=== PATIENT | female | born 1955 | race African-American/Black ===

== ENCOUNTER 2022-03-22 23:46 | Inpatient (IN) | payer MEDICARE, OTHER ==
[~2022-03-22] VITALS: Ht 165.1 cm; Wt 72.6 kg
[2022-03-23] MEDS ORDERED: CLON0.1T PO (00:16)
[2022-03-23] MEDS ORDERED: PREG50CA PO (00:16)
[2022-03-23] MEDS ORDERED: ASPI81TA31 PO (00:16)
[2022-03-23] MEDS ORDERED: AMLO10TA59 PO (00:16)
[2022-03-23] MEDS ORDERED: HYDR-3972 PO (00:16)
[2022-03-23] MEDS ORDERED: HYDR-4075 PO (00:16)
[2022-03-23] MEDS ORDERED: MAGN400O6 PO (00:16)
[2022-03-23] MEDS ORDERED: BISA10SU61 RC (00:16)
[2022-03-23] MEDS ORDERED: NA P230E RC (00:16)
[2022-03-23] MEDS ORDERED: CYCL5TAB PO (00:16)
[2022-03-23] MEDS ORDERED: LOSA100T31 PO (00:16)
[2022-03-23] MEDS ORDERED: CARV12.5 PO (00:16)
[2022-03-23] MEDS ORDERED: INSU100V7 SQ (00:16)
[2022-03-23] MEDS ORDERED: ACET-2154 PO (00:16)
--- NOTE | 2022-03-23 00:36 | NUR ---
Patient placed in hallway due to no beds avaialble in the ER at this time.
[2022-03-23 02:29] LABS: CARBON DIOXIDE 27 mmol/L (21-32); CHLORIDE 101 mmol/L (98-107); CREATININE 1.8 mg/dL (0.6-1.3); GLUCOSE 222 mg/dL (74-106); POTASSIUM 4.2 mmol/L (3.5-5.1); UREA NITROGEN, BLOOD 29 mg/dL (7-18)
[2022-03-23 02:32] LABS: ETHANOL < 3 MG/DL (0-0)
[2022-03-23 02:37] LABS: ALANINE AMINOTRANSFERASE 18 U/L (14-59); ALKALINE PHOSPHATASE 154 U/L (50-136); ASPARTATE AMINOTRANSFERASE 12 U/L (15-37); BILIRUBIN,DIRECT 0.1 mg/dL (0.0-0.2); BILIRUBIN,TOTAL 0.3 mg/dL (0.2-1.0); MEAN CORPUSCULAR HEMOGLOBIN 28.1 uug (24.7-32.8); MEAN CORPUSCULAR VOLUME 82.9 fL (75.5-95.3); PLATELET COUNT (AUTO) 242 K/uL (179-408); TOTAL PROTEIN, SERUM 7.1 g/dL (6.4-8.2)
[2022-03-23] MEDS ORDERED: FUROSEMIDE 40 MG/4 ML VIAL IV ONE (04:00)
--- NOTE | 2022-03-23 05:35 | NUR ---
Called [facility] for panel call.
[2022-03-23] MEDS ORDERED: REMEDY ESSENTIAL ZINC PASTE 113 GM TP PRN (06:00)
[2022-03-23] MEDS ORDERED: Medication Not On Formulary EA (Cyclobenzaprine Hcl 10 MG) PO PRN (06:00)
[2022-03-23] MEDS ORDERED: BISACODYL 10 MG SUPP.RECT RC PRN (06:00)
[2022-03-23] MEDS ORDERED: ONDANSETRON 4 MG/2 ML VIAL IV PRN (06:00)
[2022-03-23] MEDS ORDERED: MAGNESIUM HYDROXIDE 30 ML LIQUID UDC PO PRN ×2 (06:00)
[2022-03-23] MEDS ORDERED: DEXTROSE 50% 50 ML DISP.SYRIN IV PRN (06:00)
[2022-03-23] MEDS ORDERED: ACETAMINOPHEN 325 MG TABLET-SA PATIENTS-PAIN ONLY PO PRN (06:00)
[2022-03-23] MEDS ORDERED: CLONIDINE HCL 0.1 MG TABLET ONE (06:43)
[2022-03-23] MEDS: CLONIDINE HCL 0.1 MG TABLET PO PRN ×2 (06:45→23:55)
[2022-03-23] MEDS ORDERED: HYDROCODONE/APAP 5-325MG TABLET ONE (06:46)
[2022-03-23] MEDS: HYDROCODONE/APAP 5-325MG TABLET PO PRN ×2 (06:49→15:29)
--- NOTE | 2022-03-23 07:15 | NUR ---
Received pt in bed, alert and orientedx4 on 2 lpm via nasal cannula. Pt not in any form of distress.
[2022-03-23 07:26] LABS: *BILIRUBIN,URIN NEGATIVE (NEGATIVE); *BLOOD, URINE 2+ (NEGATIVE); *COLOR,URINE LIGHT YELLOW (YELLOW); *KETONES,URINE NEGATIVE (NEGATIVE); *UROBILINOGEN,URINE 0.2 E.U./dl (NORMAL); LEUKOCYTE ESTERASE ,URINE TRACE (NEGATIVE); NITRITE, URINE NEGATIVE (NEGATIVE); PH,URINE 6.5 (5.0-8.0); UGLUCOSE TRACE (NEGATIVE)
[2022-03-23 07:32] LABS: *CLARITY,URINE HAZY (CLEAR)
[2022-03-23 07:40] LABS: BACTERIA,URINE MANY /HPF (NONE SEEN); SQUAMOUS EPITHELIAL CELL,UR FEW /HPF (NONE SEEN)
[2022-03-23 07:43] LABS: *AMPHETAMINE, URINE NEGATIVE (NEGATIVE); *CANNABINOID, URINE NEGATIVE (NEGATIVE); *COCCAINE, URINE NEGATIVE (NEGATIVE); *OPIATE, URINE POSITIVE (NEGATIVE); *PHENCYCLIDINE SCREEN,URINE NEGATIVE (NEGATIVE)
[2022-03-23] MEDS ORDERED: hydrALAZINE HCL 25 MG TABLET PO PRN (07:45)
[2022-03-23] MEDS ORDERED: hydrALAZINE HCL 20 MG/1 ML VIAL IV PRN (08:00)
[2022-03-23] MEDS ORDERED: hydrALAZINE HCL 10 MG TABLET PO PRN (08:00)
[2022-03-23] MEDS: BLOOD SUGAR DIAGNOSTIC 1 EACH STRIP VI SCH ×4 (08:04→21:16)
[2022-03-23] MEDS: INSULIN REGULAR, HUMAN 300 UNIT/3 ML VIAL SQ PRN ×3 (08:15→16:46)
[2022-03-23] MEDS ORDERED: hydrALAZINE HCL 10 MG TABLET PO SCH (08:30)
[2022-03-23] MEDS ORDERED: hydrALAZINE HCL 25 MG TABLET ONE (08:55)
[2022-03-23] MEDS ORDERED: Medication Not On Formulary EA (Losartan Potassium 100 MG) PO SCH (09:00)
[2022-03-23] MEDS: LOSARTAN POTASSIUM 50 MG TABLET PO SCH (09:00)
[2022-03-23] MEDS: ASPIRIN 81 MG TAB.CHEW PO SCH (09:00)
[2022-03-23] MEDS ORDERED: LOSARTAN POTASSIUM 50 MG TABLET PO SCH (09:00)
[2022-03-23] MEDS: AMLODIPINE 10 MG TABLET PO SCH (09:00)
--- NOTE | 2022-03-23 09:00 | NUR ---
Attempted to give a report, maynor said nurse fabiano will call me back
[2022-03-23] MEDS ORDERED: ASPIRIN 81 MG TAB.CHEW ONE (10:00)
[2022-03-23] MEDS ORDERED: CARVEDILOL 12.5 MG TABLET ONE (10:01)
[2022-03-23] MEDS ORDERED: AMLODIPINE 5 MG TABLET ONE (10:01)
[2022-03-23] MEDS ORDERED: CYCLOBENZAPRINE HCL 10 MG TABLET ONE (10:01)
[2022-03-23] MEDS: CYCLOBENZAPRINE HCL 10 MG TABLET PO PRN ×2 (10:02→21:05)
[2022-03-23] MEDS: CARVEDILOL 12.5 MG TABLET PO SCH ×2 (10:07→17:11)
[2022-03-23] MEDS ORDERED: NITROFURANTOIN/NITROFURAN MAC 100 MG CAPSULE PO SCH (10:30)
[2022-03-23] MEDS ORDERED: SULFAMETH/TRIMETH 800/160 MG TABLET PO SCH (10:39)
--- NOTE | 2022-03-23 11:00 | NUR ---
Report given to Nurse Duarte.
--- NOTE | 2022-03-23 11:15 | NUR ---
Patient transferred to telemetry room 325 accompanied by RN. Patient alert and orientex3 on 2 lpm via nasal cannula. Pt not in distress. IV site on left hand 24g intact and patent.
--- NOTE | 2022-03-23 11:30 | NUR ---
RECEIVED PATIENT BY JOSH 66 YEARS OLD FEMALE FROM THE ED WITH DX OF CONGESTIVE HEART FAILURE ASSISTED INTO BED FIXED AND MADE COMFORTABLE PATIENT IS ALERT AND ORIENTED DENIES PAIN OR DISCOMFORTS AT THIS TIME ORIENTED TO ROOM AND FACILITY PROTOCOL ON O2 AT 2L/M BY NASAL CANULA WITH NO SOB AT THIS TIME.ORDERS WAS ALREADY RECONCILED FROM THE ED WILL CONTINUE TO OBSERVE.
[2022-03-23 11:33] VITALS: BP 143/59
[2022-03-23] MEDS: hydrALAZINE HCL 50 MG TABLET PO SCH ×2 (15:32→21:00)
[2022-03-23 15:38] VITALS: BP 160/77
--- NOTE | 2022-03-23 18:00 | NUR ---
REMAIN ON O2 WITH NO SOB AT THIS TIME BLOOD SUGAR CHECKS WITH INSULIN COVERAGE PER SLIDING SCALE WAS MEDICATED PO X1 FOR C/O PAIN AND WAS HELPFUL WILL CONTINUE TO OBSERVE.
[2022-03-23 20:00] VITALS: BP 158/75
[2022-03-23] MEDS ORDERED: FUROSEMIDE 40 MG/4 ML VIAL IV SCH (21:00)
[2022-03-23] MEDS: ACETAMINOPHEN 325 MG TABLET PO PRN (21:09)
[2022-03-23] MEDS: INSULIN REGULAR, HUMAN 300 UNITS/3 ML VIAL SQ PRN (21:32)
[2022-03-23] MEDS: INSULIN GLARGINE,HUM 300 UNITS/3 ML CARTRIDGE SQ SCH (21:32)
[2022-03-23] MEDS: HYDROCODONE/APAP 10-325 MG TABLET PO PRN (23:10)
[2022-03-24 00:23] VITALS: BP 186/91
[2022-03-24 04:00] VITALS: BP 176/81
--- NOTE | 2022-03-24 05:39 | NUR ---
Slept throughout the night. No distress noted. Able to make needs known. IV site intact. Pt refuses to get midline at this time. Tolerated all medications given. Safety maintained throughout the shift. Will endorse to day shift.
[2022-03-24] MEDS: hydrALAZINE HCL 50 MG TABLET PO SCH ×3 (06:22→22:00)
[2022-03-24] MEDS: BLOOD SUGAR DIAGNOSTIC 1 EACH STRIP VI SCH ×4 (06:31→20:28)
[2022-03-24 07:09] LABS: HEMATOCRIT 25.6 % (31.2-41.9); MEAN CORPUSCULAR HEMOGLOBIN 28.2 uug (24.7-32.8); MEAN CORPUSCULAR VOLUME 82.4 fL (75.5-95.3); PLATELET COUNT (AUTO) 229 K/uL (179-408)
[2022-03-24 07:25] LABS: CREATININE 2.1 mg/dL (0.6-1.3); MAGNESIUM 1.6 mg/dL (1.8-2.4); PHOSPHOROUS 4.7 mg/dL (2.5-4.9)
[2022-03-24 07:30] VITALS: BP 186/83
[2022-03-24] MEDS ORDERED: CEFTRIAXONE 1 G VIAL IV SCH (08:00)
[2022-03-24] MEDS ORDERED: MORPHINE SULFATE 2 MG/1 ML DISP.SYRIN IV PRN (08:30)
[2022-03-24] MEDS: INSULIN REGULAR, HUMAN 300 UNIT/3 ML VIAL SQ PRN ×3 (08:34→17:10)
[2022-03-24] MEDS: ASPIRIN 81 MG TAB.CHEW PO SCH (08:34)
[2022-03-24] MEDS: LOSARTAN POTASSIUM 50 MG TABLET PO SCH (08:37)
[2022-03-24] MEDS: AMLODIPINE 10 MG TABLET PO SCH (08:37)
[2022-03-24] MEDS: CARVEDILOL 25 MG TABLET PO SCH ×2 (08:40→17:08)
[2022-03-24] MEDS: HYDROCODONE/APAP 10-325 MG TABLET PO PRN ×2 (08:41→23:54)
[2022-03-24] MEDS ORDERED: MAGNESIUM SULFATE/D5W 100 ML IV SCH (08:45)
--- NOTE | 2022-03-24 09:25 | NUR ---
MAGNESIUM LEVEL IS 1.6 WITH NEW MAG REPLACEMENT ORDER IV LINE LEFT WRIST NOT FUNCTIONING PATIENT IS A VERY HARD STICK AND NEEDS A MIDLINE MD AWARE WITH ORDER YARD FOREMAN NOTIFIED.
[2022-03-24 10:54] LABS: NEUTROPHILS % (MANUAL) 0 % (42-75)
[2022-03-24 11:14] VITALS: BP 187/82
[2022-03-24] MEDS: CLONIDINE HCL 0.1 MG TABLET PO PRN (11:33)
[2022-03-24] MEDS: MORPHINE SULFATE 4 MG/1 ML DISP.SYRIN IV PRN ×3 (11:34→21:07)
[2022-03-24] MEDS: CEFTRIAXONE 1 G in IV DEXTROSE 5% 50 ML IV SCH (12:34)
--- NOTE | 2022-03-24 13:00 | NUR ---
PER THE CENTRAL OFFICE MECHANIC PATIENT WILL BE TAKEN TO [facility] FOR HER CTA CHEST WITH NO CONTRAST DUE TO THE CT MACHINE HERE NOT FUNCTIONING WELL.
--- NOTE | 2022-03-24 13:00 | NUR ---
mid line inserted to her left upper arm as ordered and atb started at this time as ordered.
--- NOTE | 2022-03-24 15:30 | NUR ---
PATIENT PICKED UP BY AMBULANCE TO [id number]PT FOR CTA ORDERED
[2022-03-24 15:39] VITALS: BP 111/51
--- NOTE | 2022-03-24 16:49 | NUR ---
PATIENT RETURNED FROM [place] S/ CT ORDERED AND ASSISTED INTO BED AT THIS TIME.
--- NOTE | 2022-03-24 17:07 | NUR ---
PATIENT MEDICATED WITH MORPHINE FOR C/O PAIN GENERALISED ORDERED MADE COMFORTABLE WILL CONTINUE TO OBSERVE.
[2022-03-24] MEDS ORDERED: CARVEDILOL 12.5 MG TABLET PO SCH (18:00)
--- NOTE | 2022-03-24 19:30 | NUR ---
Received patient lying in bed. AAOx4. In no apparent distress. Denies any SOB. On O2 at 3LPM via NC in place. O2 sat at 98%. Midline on left upper arm intact and patent. NSR on tele with HR of 68/min. Needs assessed and attended to. Safety measure initiated and call light within reached.
--- NOTE | 2022-03-24 19:34 | NUR ---
RESULT OF CT CHEST RELAYED TO DR BETANCOURT WITH NO NEW ORDERS AT THIS TIME
--- NOTE | 2022-03-24 20:08 | NUR ---
Patient complaining of cough, productive and able to expectorate clear phlegm. Informed Dr Wong and obtain order for Robitussin plain 200mg every 4 hours PRN. Order noted and will carry out.
[2022-03-24] MEDS: GUAIFENESIN SUGAR FREE 100 MG/5 ML UDC PO PRN (20:23)
[2022-03-24 20:25] VITALS: BP 162/68
[2022-03-24] MEDS: INSULIN REGULAR, HUMAN 300 UNITS/3 ML VIAL SQ PRN (20:27)
[2022-03-24] MEDS: INSULIN GLARGINE,HUM 300 UNITS/3 ML CARTRIDGE SQ SCH (20:27)
[2022-03-24] MEDS: ACETAMINOPHEN 325 MG TABLET PO PRN (23:52)
--- NOTE | 2022-03-24 23:59 | NUR ---
Patient with temp of 100.8 orally. Tylenol 650mg PO given and cooling measure provided. BP up to 190/85. Offered Catapres PO PRN per order but patient continue to refused BP medication stating that her BP is up because of her pain. Ell[place] 10/325 1 tab PO also given for pain. Continue to monitor.
[2022-03-25 00:09] VITALS: BP 190/85
[2022-03-25] MEDS: GUAIFENESIN SUGAR FREE 100 MG/5 ML UDC PO PRN ×3 (01:16→17:38)
[2022-03-25] MEDS: MORPHINE SULFATE 4 MG/1 ML DISP.SYRIN IV PRN ×5 (01:16→22:43)
[2022-03-25 03:50] VITALS: BP 123/66
--- NOTE | 2022-03-25 04:42 | NUR ---
Informed JOAN George that patient still having temp of 100.9 in spite of cooling measure and Tylenol 650mg PO given since midnight. JOAN George with order to do Blood Cx. Order noted and will carry out.
--- NOTE | 2022-03-25 05:12 | NUR ---
Morales catheter Fr16 with 10cc balloon inserted per order. 400ml of keisha color urine output noted on urinary drainage bag.
[2022-03-25] MEDS: hydrALAZINE HCL 50 MG TABLET PO SCH ×3 (06:00→21:38)
[2022-03-25] MEDS: ACETAMINOPHEN 325 MG TABLET PO PRN (06:12)
[2022-03-25] MEDS: BLOOD SUGAR DIAGNOSTIC 1 EACH STRIP VI SCH ×4 (06:40→21:59)
[2022-03-25 07:05] LABS: CREATININE 2.3 mg/dL (0.6-1.3); MAGNESIUM 1.7 mg/dL (1.8-2.4); POTASSIUM 4.4 mmol/L (3.5-5.1)
[2022-03-25] MEDS ORDERED: MAGNESIUM SULFATE/D5W 100 ML IV SCH (09:15)
[2022-03-25] MEDS: ASPIRIN 81 MG TAB.CHEW PO SCH (09:56)
[2022-03-25] MEDS: CEFTRIAXONE 1 G in IV DEXTROSE 5% 50 ML IV SCH (10:02)
[2022-03-25] MEDS: CARVEDILOL 25 MG TABLET PO SCH ×3 (10:11→18:00)
[2022-03-25] MEDS: AMLODIPINE 10 MG TABLET PO SCH (10:12)
[2022-03-25] MEDS: LOSARTAN POTASSIUM 50 MG TABLET PO SCH (10:12)
--- NOTE | 2022-03-25 11:26 | NUR ---
Pt had temperature of 100.9 F last night. afebrile this morning. Rapid and PCR have been sent to lab. Rapid resulted in positive test result. Pt placed in isolation. notified.
[2022-03-25 11:36] VITALS: BP 136/69
[2022-03-25] MEDS: HYDROCODONE/APAP 10-325 MG TABLET PO PRN (12:51)
[2022-03-25 15:32] VITALS: BP 161/66
[2022-03-25] MEDS: RIVAROXABAN 10 MG TABLET PO SCH ×2 (17:00→17:38)
[2022-03-25] MEDS ORDERED: REMDESIVIR (CHARGED) 200 MG in IV NORMAL SALINE 210 ML IV ONE (17:15)
[2022-03-25] MEDS: DEXAMETHASONE SOD PHOSPHATE 4 MG INJ IV SCH (17:45)
[2022-03-25] MEDS ORDERED: IPRATROPIUM/ALBUTEROL SULFATE 14.7 GM INHALER INH PRN (18:00)
[2022-03-25] MEDS: INSULIN REGULAR, HUMAN 300 UNIT/3 ML VIAL SQ PRN (18:12)
--- NOTE | 2022-03-25 18:17 | NUR ---
Pt is upset about receiving pain medication late, I explained that it was not time for the norco yet and administered morphine. Pt kept yelling and not listening to instruction or reasoning and refused to take xarelto and coreg scheduled [id number]. BP elevated at 170/61 HR 62. Pt removed nasal cannula, still saturating at 94-95%. Pt refuses to have telemetry on her, she removed and put it at bedside. Pt wants to speak with knitting supervisor and charge nurse, both have been notified.
--- NOTE | 2022-03-25 19:40 | NUR ---
RECEIVED PATIENT IN BED. AAOX4. SR ON TELEMONITOR. DENIES CHEST PAIN. ON 3L O2, DENIES SOB. IV ACCESS ON KOFFI ML INTACT AND PATENT. WITH BEDSIDE COMMODE. SAFETY PRECAUTIONS IN PLACE. CLOSELY MONITORED.
--- NOTE | 2022-03-25 20:00 | NUR ---
PATIENT REMOVED TELEMONITOR AND REFUSED FURTHER TELEMONITORING.
[2022-03-25 21:13] VITALS: BP 170/71
[2022-03-25] MEDS: TRAZODONE 100 MG TABLET PO SCH (21:38)
[2022-03-25] MEDS: INSULIN GLARGINE,HUM 300 UNITS/3 ML CARTRIDGE SQ SCH (21:58)
[2022-03-25] MEDS: INSULIN REGULAR, HUMAN 300 UNITS/3 ML VIAL SQ PRN (21:59)
[2022-03-26] VITALS: BP 165/78
--- NOTE | 2022-03-26 02:52 | NUR ---
PATIENT REPORTED HAVING WATERY STOOLS X 2 DAYS. DELINQUENT TAX COLLECTOR NOTIFIED. ORDERED FOR C.DIFF TEST. SPECIMEN COLLECTED AND SENT TO LAB.
[2022-03-26 04:54] VITALS: BP 146/58
--- NOTE | 2022-03-26 05:49 | NUR ---
RT ATTEMPTED TO DRAW PATIENT'S BLOOD FOR ABG. PATIENT REFUSED AND STATED " I DON'T WANT MY BLOOD DRAWN NO MORE". EXPLAINED PURPOSE OF PROCEDURE TO THE PATIENT AND PATIENT VERBALIZED UNDERSTANDING AND REITERATED REFUSAL.
[2022-03-26] MEDS: hydrALAZINE HCL 50 MG TABLET PO SCH ×3 (06:00→21:06)
--- NOTE | 2022-03-26 06:05 | NUR ---
PATIENT REFUSED ABG SAMPLE. I WENT INTO PATIENTS ROOM FOR ABG ORDER. PATIENT SAID SHE WASNT GONNA DO IT TODAY. I EXPLAINED THE PURPOSE SHE SAID SHE WOULD NOT BE GIVING ANY BLOOD FROM HER BODY TODAY. PATIENT BECAME EMOTIONAL. NURSE WAS NOTIFIED.
--- NOTE | 2022-03-26 06:17 | NUR ---
PATIENT REFUSED SCHEDULED HYDRALAZINE 50 MG (2TABS). BLOOD PRESSURE WAS 167/68MMHG AND HR OF 65BPM. EXPLAINED RISKS TO PATIENT. PATIENT CLAIMED THAT IT MAKES HER DIZZY AND CONGESTION.
[2022-03-26] MEDS: HYDROCODONE/APAP 10-325 MG TABLET PO PRN ×3 (06:52→23:31)
[2022-03-26] MEDS: BLOOD SUGAR DIAGNOSTIC 1 EACH STRIP VI SCH ×4 (06:52→20:38)
--- NOTE | 2022-03-26 07:00 | NUR ---
SALES SUPPORT ADMINISTRATOR ATTEMPTED TO TAKE BLOOD FROM PATIENT, PATIENT GOT AGITATED AND REFUSED TO HAVE HER BLOOD DRAWN. PATIENT WITHDREW HER HAND, HITTING THE SALES SUPPORT ADMINISTRATOR AND KNOCKING OVER THE VIALS. PATIENT GREW AGITATED AND REMOVED HER KOFFI IV ACCESS. WHEN ASKED FOR A REINSERTION PATIENT,REFUSED.
--- NOTE | 2022-03-26 07:02 | NUR ---
PATIENT REPORTED SHE WAS IN PAIN, NORCO GIVEN PRN.
[2022-03-26] MEDS: CARVEDILOL 25 MG TABLET PO SCH ×2 (08:00→17:12)
[2022-03-26] MEDS: AMLODIPINE 10 MG TABLET PO SCH (09:00)
[2022-03-26] MEDS: DEXAMETHASONE SOD PHOSPHATE 4 MG INJ IV SCH (09:00)
[2022-03-26] MEDS: LOSARTAN POTASSIUM 50 MG TABLET PO SCH (09:00)
--- NOTE | 2022-03-26 09:00 | NUR ---
Sleeping, appears comfortable. Attempted to titrate to room air, with O2 sat of 88-90%. Placed back to O2 at 2L/NC with O2 sat of 95%. Refused to take BP medications. Refused reinsertion of IV. IV medications not given. Dr. Celeste informed
[2022-03-26] MEDS: MEROPENEM 1 G in IV NORMAL SALINE 100 ML IV SCH ×2 (10:00→21:03)
[2022-03-26] MEDS: ASPIRIN 81 MG TAB.CHEW PO SCH (10:04)
[2022-03-26 11:00] VITALS: BP 145/66
--- NOTE | 2022-03-26 11:00 | NUR ---
Sleeping between care. O2 at 2L/NC
[2022-03-26 12:18] LABS: HEMATOCRIT 26.8 % (31.2-41.9); MEAN CORPUSCULAR HEMOGLOBIN 27.9 uug (24.7-32.8); MEAN CORPUSCULAR VOLUME 82.4 fL (75.5-95.3); PLATELET COUNT (AUTO) 211 K/uL (179-408)
[2022-03-26 12:37] LABS: BILIRUBIN,TOTAL 0.2 mg/dL (0.2-1.0); CREATININE 2.2 mg/dL (0.6-1.3); MAGNESIUM 1.9 mg/dL (1.8-2.4); PHOSPHOROUS 5.1 mg/dL (2.5-4.9); POTASSIUM 4.6 mmol/L (3.5-5.1); TOTAL PROTEIN, SERUM 6.8 g/dL (6.4-8.2)
[2022-03-26] MEDS: INSULIN REGULAR, HUMAN 300 UNITS/3 ML VIAL SQ PRN ×2 (13:28→20:39)
[2022-03-26] MEDS: RIVAROXABAN 10 MG TABLET PO SCH (17:11)
[2022-03-26] MEDS: INSULIN REGULAR, HUMAN 300 UNIT/3 ML VIAL SQ PRN (17:12)
[2022-03-26] MEDS ORDERED: REMDESIVIR (CHARGED) 100 MG in IV NORMAL SALINE 100 ML IV SCH (17:15)
--- NOTE | 2022-03-26 18:42 | NUR ---
Morphine drip infusing. Son at bedside. Addendum: 03/26/22 at 1854 by INEZ ROBERTSON RN notes not for this patient
--- NOTE | 2022-03-26 18:54 | NUR ---
Agreed for IV line. Midline reinsertion done to FLETCHER.
--- NOTE | 2022-03-26 20:00 | NUR ---
patients rounds made aaox3, patient upset and wants to speak with nursing supervisor hot dip plating veterinary poultry inspector with what happened earlier this morning about 10:00 am with her and the avionics system engineer as per patient shes been wanting to speak with the spa manager/esthetician or supervisor hot dip plating because they did not get her side of the story its only a 1 sided story .she also wants to file an incident report. informed bellows charger assembler this pm shift . spoked with patient and told her that the nurse spa manager/esthetician already gone for the day and she will be here at 08:00 to 5:00 pm on regular business hours .
--- NOTE | 2022-03-26 20:27 | NUR ---
fingerstick done result 205 Lantus insulin given and regular insulin for hs given .
[2022-03-26] MEDS: TRAZODONE 100 MG TABLET PO SCH (20:30)
[2022-03-26] MEDS: INSULIN GLARGINE,HUM 300 UNITS/3 ML CARTRIDGE SQ SCH (20:37)
[2022-03-26] MEDS: MORPHINE SULFATE 4 MG/1 ML DISP.SYRIN IV PRN (20:42)
[2022-03-26 20:58] VITALS: BP 179/71
[2022-03-26] MEDS: GUAIFENESIN SUGAR FREE 100 MG/5 ML UDC PO PRN (21:03)
--- NOTE | 2022-03-26 21:17 | NUR ---
patient refused hydralazine bp medication . bp 179/71 patient informed but still strongly refused .
[2022-03-27] MEDS: MORPHINE SULFATE 4 MG/1 ML DISP.SYRIN IV PRN ×3 (01:42→12:49)
[2022-03-27 05:10] VITALS: BP 182/65
[2022-03-27] MEDS: hydrALAZINE HCL 50 MG TABLET PO SCH ×2 (05:20→14:00)
[2022-03-27] MEDS: BLOOD SUGAR DIAGNOSTIC 1 EACH STRIP VI SCH ×2 (06:51→11:30)
[2022-03-27] MEDS: LOSARTAN POTASSIUM 50 MG TABLET PO SCH (08:51)
[2022-03-27] MEDS: AMLODIPINE 10 MG TABLET PO SCH (08:51)
[2022-03-27] MEDS: ASPIRIN 81 MG TAB.CHEW PO SCH (08:52)
[2022-03-27] MEDS: GUAIFENESIN SUGAR FREE 100 MG/5 ML UDC PO PRN (08:52)
[2022-03-27] MEDS: DEXAMETHASONE SOD PHOSPHATE 4 MG INJ IV SCH (08:52)
[2022-03-27] MEDS: CARVEDILOL 25 MG TABLET PO SCH (08:52)
[2022-03-27] MEDS: MEROPENEM 1 G in IV NORMAL SALINE 100 ML IV SCH (10:12)
[2022-03-27] MEDS: HYDROCODONE/APAP 10-325 MG TABLET PO PRN (10:20)
--- NOTE | 2022-03-27 11:14 | NUR ---
At this time pt. refused to have lab drawn as reported by optometrist assistant.
[2022-03-27] MEDS ORDERED: CARV25TA2 PO (11:22)
[2022-03-27] MEDS ORDERED: DEXA6TAB6 PO (11:22)
[2022-03-27] MEDS ORDERED: HYDR50TA68 PO (11:22)
[2022-03-27] MEDS ORDERED: RIVA10TA PO (11:22)
[2022-03-27 12:00] VITALS: BP 175/78
--- NOTE | 2022-03-27 12:44 | NUR ---
All system telephone report given to Levon Carlos at [facility], she was informed that pt. will be going to room 312B. as earlier indicated by disease case manager rn. And that sisal picker time from [employer] will be at 1400
--- NOTE | 2022-03-27 12:46 | NUR ---
DCD instructions given to pt. who refused to sign any documents demanding to speak with paint line supervisor,. Morphine will be administered as ordered and IV access removed before dcd.
--- NOTE | 2022-03-27 14:00 | NUR ---
DCD instructions given to pt. who refused to listen to them, and refused to sign belonging's list stating "I have and expensive dress that is missing list reviewed with pt. and she refused to sign any document stating "no body will removed my IV line I need it for morphine"
--- NOTE | 2022-03-27 14:38 | NUR ---
EMT staff in to last picker pt. dcd documentation handed to him and with his help pt. agreed to have ML dcd. Patient left AAOX4. No need of oxygen since saturation on RA was 95% sbp of 153/73 HR of 70. No c/of pain. IV lined dcd with some bleeding noted pressure and dressing applied and secured until bleeding stopped. Patient placed on gurney and taken to [facility].
== END 2022-03-27 15:00 | DRG 177 ==
LOC: ER 23:59 → TRANSITION 03-23 09:36 → TELE3 03-23 11:04 → MEDSURG3 03-26 09:00
PROVIDERS: ADMIT Internal Medicine; ATTEND Internal Medicine
PROC: 05H633Z Insertion of Infusion Device into Left Subclavian Vein, Percutaneous Approach (ICD-10-PCS; 2022-03-24)
PROC: B547ZZA Ultrasonography of Left Subclavian Vein, Guidance (ICD-10-PCS; 2022-03-24)
PROC: XW033E5 Introduction of Remdesivir Anti-infective into Peripheral Vein, Percutaneous Approach, New Technology Group 5 (ICD-10-PCS; 2022-03-25)
PROC: 05H533Z Insertion of Infusion Device into Right Subclavian Vein, Percutaneous Approach (ICD-10-PCS; principal; 2022-03-26)
PROC: B546ZZA Ultrasonography of Right Subclavian Vein, Guidance (ICD-10-PCS; 2022-03-26)
DX: U07.1 COVID-19 (principal); I50.31 Acute diastolic (congestive) heart failure; J12.82 Pneumonia due to coronavirus disease 2019; N17.0 Acute kidney failure with tubular necrosis; I16.1 Hypertensive emergency; I16.9 Hypertensive crisis, unspecified; N39.0 Urinary tract infection, site not specified; Z16.12 Extended spectrum beta lactamase (ESBL) resistance; E87.1 Hypo-osmolality and hyponatremia; I13.0 Hypertensive heart and chronic kidney disease with heart failure and stage 1 through stage 4 chronic kidney disease, or unspecified chronic kidney disease; E11.65 Type 2 diabetes mellitus with hyperglycemia; V89.2XXS Person injured in unspecified motor-vehicle accident, traffic, sequela; D63.8 Anemia in other chronic diseases classified elsewhere; N18.9 Chronic kidney disease, unspecified; B96.1 Klebsiella pneumoniae [K. pneumoniae] as the cause of diseases classified elsewhere; E11.40 Type 2 diabetes mellitus with diabetic neuropathy, unspecified; G89.4 Chronic pain syndrome; I25.10 Atherosclerotic heart disease of native coronary artery without angina pectoris; Z88.0 Allergy status to penicillin; E11.22 Type 2 diabetes mellitus with diabetic chronic kidney disease; Z79.4 Long term (current) use of insulin; I27.20 Pulmonary hypertension, unspecified; Z79.01 Long term (current) use of anticoagulants
CPT/HCPCS: 36415; 70030-TC; 71045; 71250; 76770; 83735; 84100; 84484; 85025; 87040; 87077; 87086; 93005; 93307; A4663; G0378; G0480; J0696; J1100; J1815; J1940; J2185; J2270; J3475; J3490; U0003